=== PATIENT | male | born 1945 | race Caucasian/White ===

== ENCOUNTER 2020-10-26 12:52 | Emergency (ER) | payer SELFPAY ==
[~2020-10-26] VITALS: Ht 170.2 cm; Wt 72.7 kg
[2020-10-26 13:40] VITALS: BP 151/83
--- NOTE | 2020-10-26 14:32 | NUR ---
SPOKE WITH RN AT [facility] CONCERNING PT. NURSE STATES FROM WHAT I DESCRIBED ABOUT PT THAT HE IS AT BASELINE.
== END 2020-10-26 16:45 | disposition home or self-care (01) ==
LOC: ED 16:39
DX: R41.82 Altered mental status, unspecified (principal); R94.31 Abnormal electrocardiogram [ECG] [EKG]
CPT/HCPCS: 93005; 99283